=== PATIENT | male | born 1980 | race Caucasian/White ===

== ENCOUNTER 2019-03-11 12:12 | Emergency (ER) | payer OTHER ==
[~2019-03-11] VITALS: Ht 167.6 cm; Wt 77.1 kg
== END 2019-03-11 16:19 | disposition home or self-care (01) ==
LOC: ER 12:12
DX: S20.212A Contusion of left front wall of thorax, initial encounter (principal); M94.0 Chondrocostal junction syndrome [Tietze]; W18.39XA Other fall on same level, initial encounter; Y93.89 Activity, other specified; Y92.89 Other specified places as the place of occurrence of the external cause; Y99.8 Other external cause status

== ENCOUNTER 2024-11-15 11:40 | Emergency (ER) | payer OTHER ==
[~2024-11-15] VITALS: Ht 167.6 cm; Wt 77.1 kg
[2024-11-15] MEDS ORDERED: CARVEDILOL3.125 M1 PO (11:55)
[2024-11-15] MEDS ORDERED: ZESTRIL5 MG PO (11:55)
[2024-11-15] MEDS ORDERED: AZITHROMYCIN 500 MG TABLET PO ONE ×2 (12:11→12:15)
[2024-11-15] MEDS ORDERED: DEXAMETHASONE SODIUM PHOSPHATE 4 MG/ML VIAL ONE (12:11)
[2024-11-15] MEDS ORDERED: GUAIFEN/DEXTROMETHORPHAN/PE 10 ML BLIST.PACK PO ONE (12:11)
[2024-11-15] MEDS ORDERED: DEXAMETHASONE SODIUM PHOSPHATE 4 MG/ML VIAL IM ONE (12:15)
[2024-11-15] MEDS ORDERED: GUAIFENESIN/DEXTROMETHORPHAN 100MG/10ML BLIST.PACK PO ONE (12:15)
[2024-11-15 12:31] LABS: BASO % 0.9 % (0.1-1.2); EOS # 0.01 (0.04-0.54); EOS % 0.3 % (0.7-7.0); LYMPH # 0.86 (1.18-3.74); LYMPH % 24.6 % (19.3-53.1); MEAN PLATELET VOLUME 10.00 fl (9.4-12.4); MONO # 0.69 (0.24-0.82); NEUT # 1.89 (1.56-6.13); NEUT % 54.1 % (34.0-71.1); RED CELL DISTRIBUTION WIDTH 13.2 % (11.6-14.4)
[2024-11-15 12:33] LABS: MONO % 19.8 % (4.7-12.5)
[2024-11-15 13:05] LABS: COVID-19 AG NEGATIVE (NEGATIVE)
[2024-11-15] MEDS ORDERED: ZITHROMAX500 MG PO (13:09)
[2024-11-15] MEDS ORDERED: ZYRTEC10 M3 PO (13:09)
[2024-11-15] MEDS ORDERED: TUSNEL LIQUID178 ML PO (13:09)
== END 2024-11-15 13:41 | disposition home or self-care (01) ==
LOC: ER 11:40
PROVIDERS: General Practice
DX: J06.9 Acute upper respiratory infection, unspecified (principal); Z20.822 Contact with and (suspected) exposure to COVID-19